=== PATIENT | female | born 1995 | race Asian ===

== ENCOUNTER 2018-05-02 21:39 | Emergency (ER) | payer OTHER ==
[~2018-05-02] VITALS: Ht 154.9 cm; Wt 53.1 kg
[2018-05-02 21:46] VITALS: BP 129/92
--- NOTE | 2018-05-02 21:48 | NUR ---
Pt ambulated to bed 9 with vss.
--- NOTE | 2018-05-02 22:18 | NUR ---
PT UP TO BATHROOM. AMBULATORY W/STEADY GATE.
--- NOTE | 2018-05-02 22:24 | NUR ---
PT BACK IN BED. BE DIN LOWER LOCKED POSITION. BEDRAILS UP X1. ER MADE AWARE OF PT STATUS.
--- NOTE | 2018-05-02 22:31 | NUR ---
Dr. Ott evaluating patient at bedside.
--- NOTE | 2018-05-02 22:49 | NUR ---
Patient discharged with v/s stable. Written and verbal after care instructions given and explained. Patient alert, oriented and verbalized understanding of instructions. Ambulatory with steady gait. All questions addressed prior to discharge. ID band removed. Patient advised to follow up with PMD. Rx of MOTRIN AND AMOXICILLIN given. Patient educated on indication of medication including possible reaction and side effects. Opportunity to ask questions provided and answered.
[2018-05-02 22:50] VITALS: BP 125/90
== END 2018-05-02 22:49 | disposition home or self-care (01) ==
LOC: MED 21:39
DX: K04.7 Periapical abscess without sinus (principal)
CPT/HCPCS: 99283